=== PATIENT | male | born 1970 | race Caucasian/White ===

== ENCOUNTER 2017-04-15 17:17 | Emergency (ER) | payer SELFPAY ==
[~2017-04-15] VITALS: Ht 167.6 cm; Wt 102.1 kg
[2017-04-15] MEDS ORDERED: LORAZEPAM 1 MG TAB PO ONE (17:45)
--- NOTE | 2017-04-15 18:36 | Diagnostic Imaging Report ---
EXAMINATION: Chest, CHEST SINGLE (NOT PORTABLE) INDICATION: Chest pain COMPARISON: None FINDINGS: LINES: None. Heart: Normal cardiac silhouette. Vascular: The pulmonary vasculature is within normal limits. Mediastinum: No mediastinal, hilar, or axillary mass or lymphadenopathy. Lungs: No parenchymal mass. No focal consolidation. Pleura: No pleural effusion. No pneumothorax. Bones: No acute osseous abnormality. Degenerative changes of the thoracic spine. Soft tissues: Normal. Impression: No acute radiographic abnormality. Signed by: Dr. Derek Coleman M.D. on 04/15/2017 6:30 PM
[2017-04-15 19:03] LABS: BASOPHILS # (AUTO) 0.1 (0.0-0.1); BASOPHILS % 0.7 % (0.0-1.0); EOSINOPHILS # (AUTO) 0.1 (0.0-0.4); EOSINOPHILS % 1.8 % (0.0-6.0); HEMATOCRIT 44.1 % (38.2-49.6); LYMPHOCYTES # (AUTO) 1.5 (1.0-3.2); LYMPHOCYTES % 20.9 % (18.0-39.1); MEAN CORPUSCULAR HEMOGLOBIN 33.3 pg (28-32); MONOCYTES # (AUTO) 0.7 (0.2-0.8); MONOCYTES % 9.5 % (4.4-11.3); NEUTROPHILS # (AUTO) 4.7 (2.1-6.9); NEUTROPHILS % 66.8 % (38.7-80.0); PLATELET COUNT 144 x10e3/uL (140-360); RED CELL DISTRIBUTION WIDTH 12.8 % (11.7-14.4)
[2017-04-15 19:05] LABS: BILIRUBIN,URINE NEGATIVE (NEGATIVE); KETONES,URINE NEGATIVE (NEGATIVE); LEUKOCYTE ESTERASE ,URINE NEGATIVE (NEGATIVE); NITRITE,URINE NEGATIVE (NEGATIVE); PROTEIN,URINE DIPSTICK NEGATIVE (NEGATIVE); URINE UROBILINOGEN 0.2 mg/dL (0.2 - 1)
[2017-04-15 19:06] LABS: CLARITY,URINE CLEAR (CLEAR); COLOR,URINE STRAW (YELLOW)
[2017-04-15 19:20] LABS: ALANINE AMINOTRANSFERASE 149 IU/L (0-55); ALBUMIN/GLOBULIN RATIO 0.9 (0.8-2.0); ALKALINE PHOSPHATASE 137 IU/L (40-150); AMPHETAMINES SCREEN,URINE NEGATIVE (NEGATIVE); ANION GAP 21.7 mmol/L (8-16); BENZODIAZEPINES SCREEN,URINE NEGATIVE (NEGATIVE); BLOOD UREA NITROGEN < 5 mg/dL (7-26); CALCIUM 8.7 mg/dL (8.4-10.2); CARBON DIOXIDE 21 mmol/L (22-29); CHLORIDE 102 mmol/L (98-107); CREATINE KINASE 229 IU/L (30-200); EST GLOMERULAR FILTRATION RATE > 60 ML/MIN (60-); GLUCOSE 224 mg/dL (74-118); PHENCYCLIDINE SCREEN,URINE NEGATIVE (NEGATIVE); SODIUM 142 mmol/L (136-145)
[2017-04-15 19:21] LABS: WBC,URINE (MAN) 0-5 /HPF (0-5)
[2017-04-15 19:22] LABS: EPITHELIAL CELLS,URINE RARE /LPF
[2017-04-15 19:25] LABS: BUN/CREATININE RATIO 6 (6-25); POTASSIUM 2.7 mmol/L (3.5-5.1)
[2017-04-15] MEDS ORDERED: POTASSIUM CHLORIDE 20 MEQ TAB CR PO STA (19:25)
[2017-04-15 19:40] LABS: ACETAMINOPHEN < 3 ug/mL (10-30); SALICYLATE < 5.0 mg/dL (0-30)
[2017-04-15] MEDS ORDERED: MULTIVITAMINS- 12 INJECTION 10 ML, FOLIC ACID MDV 5 MG, THIAMINE HCL INJ 100 MG in SODI... IV ONE (20:45)
[2017-04-15] MEDS ORDERED: LORAZEPAM 1 MG TAB ONE (20:47)
[2017-04-15] MEDS ORDERED: DIPHENHYDRAMINE HCL INJ 50 MG/ML VIAL IV ONE ×2 (21:00→23:00)
[2017-04-15] MEDS ORDERED: LORAZEPAM INJ 2 MG/ML VIAL IV ONE ×2 (21:00→23:00)
[2017-04-16] MEDS ORDERED: POTASSIUM CHLORIDE 20 MEQ TAB CR PO STA (00:21)
[2017-04-16] MEDS ORDERED: CLONIDINE HCL 0.1 MG TAB PO ONE (04:00)
[2017-04-16] MEDS ORDERED: LORAZEPAM INJ 2 MG/ML VIAL IV ONE (04:15)
[2017-04-16 05:11] VITALS: BP 151/106
[2017-05-12] MEDS ORDERED: PANTOPRAZOLE SO40 MG PO (07:25)
[2017-05-12] MEDS ORDERED: TYLENOL WITH C1 EACH PO (07:25)
[2017-05-12] MEDS ORDERED: LEVAQUIN500 MG PO ×2 (07:25→11:57)
[2017-05-12] MEDS ORDERED: ULTRACET TABLE1 EACH PO (07:25)
[2017-05-12] MEDS ORDERED: ZOFRAN ODT4 MG PO (07:25)
[2017-05-12] MEDS ORDERED: FLAGYL500 MG PO (07:25)
[2017-05-12] MEDS ORDERED: SUCRALFATE1 GM PO (07:25)
[2017-05-12] MEDS ORDERED: FLOMAX0.4 MG PO (07:25)
== END 2017-04-16 06:16 | disposition home or self-care (01) ==
LOC: ER 17:17
DX: R45.851 Suicidal ideations (principal); F10.221 Alcohol dependence with intoxication delirium; E87.6 Hypokalemia
CPT/HCPCS: 36415; 71010; 80053; 80307; 80320; 80329 ×2; 81001; 82550; 82553; 84132; 84484; 85025; 87086; 99283; J1200; J2060 ×2; J3411; J7030; 71045

== ENCOUNTER 2017-05-07 23:56 | Inpatient (IN) | payer SELFPAY ==
[~2017-05-07] VITALS: Ht 167.6 cm; Wt 102.1 kg
--- OUTSIDE RECORDS SUMMARY | 2017-05-07 23:59 | XMS REPORT ---
Author [facility] Address Unknown Phone Unavailable Care Team Providers Care Director Fundraising Name Role Phone RNE BARBER Unavailable Unavailable Problems This patient has no known problems. Allergies, Adverse Reactions, Alerts This patient has no known allergies or adverse reactions. Medications This patient has no known medications. 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 Heart: Normal cardiac silhouette. Vascular: The pulmonary vasculature is within normal limits. Mediastinum: No mediastinal, hilar, or axillary mass or lymphadenopathy. Lungs: No parenchymal mass. No focal consolidation. Pleura: No pleural effusion. No pneumothorax. Bones: No acute osseous abnormality. Degenerative changes of the thoracic spine. Soft tissues: Normal. Impression: No acute radiographic abnormality. Signed by: Dr. Jeimy Moreno M.D. on 04/15/2017 6:30 PM Dictated By: JEIMY MORENO MD 29 Transcribed By: EMILY on 04/15/171829 COPY TO: JEANIE DRAKE NP
[2017-05-08] MEDS ORDERED: MORPHINE SULFATE 2 MG/ML SYR IV STA (00:51)
[2017-05-08] MEDS ORDERED: ONDANSETRON HCL INJ 2 MG/ML VIAL IV STA (00:51)
[2017-05-08] MEDS ORDERED: SODIUM CHLORIDE 0.9% 1000ML 1,000 ML IV STA (00:51)
[2017-05-08] MEDS ORDERED: PANTOPRAZOLE 40 MG 10ML VIAL IV STA (00:51)
[2017-05-08] MEDS ORDERED: DIATRIZOATE MEGL/DIATRIZOA SOD 30 ML BTL PO ONE (01:05)
[2017-05-08 01:07] LABS: BASOPHILS % 0.5 % (0.0-1.0); EOSINOPHILS # (AUTO) 0.1 (0.0-0.4); EOSINOPHILS % 1.6 % (0.0-6.0); HEMATOCRIT 41.7 % (38.2-49.6); HEMOGLOBIN 14.1 g/dL (14.0-18.0); MEAN CORPUSCULAR HEMOGLOBIN 33.7 pg (28-32); MEAN CORPUSCULAR HGB CONC 33.8 g/dL (31-35); MEAN CORPUSCULAR VOLUME 99.5 fL (81-99); MONOCYTES # (AUTO) 0.8 (0.2-0.8); MONOCYTES % 11.2 % (4.4-11.3); NEUTROPHILS # (AUTO) 5.3 (2.1-6.9); NEUTROPHILS % 72.4 % (38.7-80.0); PLATELET COUNT 146 x10e3/uL (140-360); RED BLOOD COUNT 4.19 x10e6/uL (4.3-5.7); RED CELL DISTRIBUTION WIDTH 13.5 % (11.7-14.4)
[2017-05-08 01:11] LABS: INR 1.21; PROTHROMBIN TIME 14.4 seconds (11.9-14.5)
[2017-05-08 01:12] LABS: PARTIAL THROMBOPLASTIN TIME 36.8 seconds (23.8-35.5)
[2017-05-08 01:19] LABS: ALANINE AMINOTRANSFERASE 115 IU/L (0-55); ALBUMIN 3.2 g/dL (3.5-5.0); ALBUMIN/GLOBULIN RATIO 0.7 (0.8-2.0); ALKALINE PHOSPHATASE 152 IU/L (40-150); AMYLASE 27 U/L (25-125); BLOOD UREA NITROGEN 12 mg/dL (7-26); BUN/CREATININE RATIO 13 (6-25); CALCIUM 8.8 mg/dL (8.4-10.2); CARBON DIOXIDE 19 mmol/L (22-29); CREATINE KINASE 44 IU/L (30-200); CREATININE, SERUM 0.93 mg/dL (0.72-1.25); EST GLOMERULAR FILTRATION RATE > 60 ML/MIN (60-); GLUCOSE 118 mg/dL (74-118); LIPASE 30 U/L (8-78)
[2017-05-08 01:31] LABS: CHLORIDE 103 mmol/L (98-107); MAGNESIUM 1.9 MG/DL (1.3-2.1); POTASSIUM 3.1 mmol/L (3.5-5.1); SODIUM 136 mmol/L (136-145)
[2017-05-08 01:32] LABS: ANION GAP 17.1 mmol/L (8-16)
[2017-05-08] MEDS ORDERED: IOPAMIDOL 370 MG/ML 200 ML INFUS..BTL INJ ONE (03:21)
[2017-05-08] MEDS ORDERED: SODIUM CHLORIDE 0.9% 50ML 50 ML ONE (03:21)
--- NOTE | 2017-05-08 03:31 | Diagnostic Imaging Report ---
EXAMINATION: CHEST SINGLE (PORTABLE) INDICATION: Abdominal pain COMPARISON: 04/15/2017 FINDINGS: TUBES and LINES: None. LUNGS: Lungs are not well inflated. Lungs are clear. There is no evidence of pneumonia or pulmonary edema. PLEURA: No pleural effusion or pneumothorax. HEART AND MEDIASTINUM: The cardiomediastinal silhouette is unremarkable. BONES AND SOFT TISSUES: No acute osseous lesion. Soft tissues are unremarkable. UPPER ABDOMEN: No free air under the diaphragm. IMPRESSION: No acute thoracic abnormality. Signed by: Dr. Aleks Constantino M.D. on 05/08/2017 3:27 AM
--- NOTE | 2017-05-08 03:35 | Diagnostic Imaging Report ---
EXAM: CT Abdomen and Pelvis WITH contrast INDICATION: Abdominal pain COMPARISON: None. TECHNIQUE: Abdomen and pelvis were scanned utilizing a multidetector helical scanner from the lung base to the pubic symphysis after administration of IV contrast. Coronal and sagittal reformations were obtained. Routine protocol was performed. Scan was performed when during portal venous phase. IV CONTRAST: 100 mL of Isovue-370 ORAL CONTRAST: Gastrografin RADIATION DOSE: Total DLP: 765.43 mGy*cm Estimated effective dose: (DLP x 0.015 x size factor) mSv COMPLICATIONS: None FINDINGS: LINES and TUBES: None. LOWER THORAX: Unremarkable HEPATOBILIARY: The liver is diffuse hypodense compared to the spleen, consistent with diffuse hepatic diffuse hepatic steatosis. No focal hepatic lesions. No biliary ductal dilation. GALLBLADDER: No radio-opaque stones or sludge. No wall thickening. SPLEEN: No splenomegaly. PANCREAS: No focal masses or ductal dilatation. ADRENALS: No adrenal nodules KIDNEYS/URETERS: Kidneys enhance symmetrically. No hydronephrosis. No cystic or solid mass lesions. No stones. GI TRACT: There is a 3.4 cm soft tissue density at the GE junction suspicious for submucosal mass. There is extensive distal small bowel submucosal fat deposition compatible with chronic enteritis and colitis. Large amount of fluid in the right hemicolon suggest acute colitis Diffuse thickening of the sigmoid colon with multiple diverticuli and pericolic fat stranding compatible with acute diverticulitis. Appendix is normal. PELVIC ORGANS/BLADDER: Unremarkable. LYMPH NODES: No lymphadenopathy. VESSELS: Unremarkable. PERITONEUM / RETROPERITONEUM: No free air or fluid. BONES: Unremarkable. SOFT TISSUES: Unremarkable. IMPRESSION: 1. Acute diverticulitis of the distal sigmoid colon with microperforation into the mesosigmoid without abscess formation or free peritoneal air. 2. Evidence of acute on chronic enteritis and colitis also present Signed by: Dr. Aleks Constantino M.D. on 05/08/2017 3:31 AM
[2017-05-08 03:56] LABS: BILIRUBIN,URINE NEGATIVE (NEGATIVE); CLARITY,URINE CLEAR (CLEAR); COLOR,URINE YELLOW (YELLOW); KETONES,URINE NEGATIVE (NEGATIVE); LEUKOCYTE ESTERASE ,URINE NEGATIVE (NEGATIVE); NITRITE,URINE NEGATIVE (NEGATIVE); PROTEIN,URINE DIPSTICK NEGATIVE (NEGATIVE); URINE UROBILINOGEN 0.2 mg/dL (0.2 - 1)
[2017-05-08 04:00] LABS: AMPHETAMINES SCREEN,URINE NEGATIVE (NEGATIVE); BENZODIAZEPINES SCREEN,URINE POSITIVE (NEGATIVE); PHENCYCLIDINE SCREEN,URINE NEGATIVE (NEGATIVE)
[2017-05-08] MEDS ORDERED: MORPHINE SULFATE 2 MG/ML SYR IV PRN (04:00)
[2017-05-08 04:10] LABS: RBC,URINE 0-5 /HPF (0-5); WBC,URINE (MAN) 21-50 /HPF (0-5)
[2017-05-08 04:11] LABS: BACTERIA,URINE FEW /HPF; EPITHELIAL CELLS,URINE RARE /LPF
[2017-05-08] MEDS ORDERED: POTASSIUM CHLORIDE 10MEQ/100ML 100 ML IV SCH (04:15)
[2017-05-08 04:36] VITALS: BP 146/78
[2017-05-08] MEDS: D5.45%NS/KCL 20MEQ 1,000 ML IV SCH ×3 (04:42→20:02)
[2017-05-08] MEDS: METRONIDAZOLE 500MG/NS 100ML 100 ML IV SCH ×4 (04:42→18:08)
[2017-05-08] MEDS: ONDANSETRON HCL INJ 2 MG/ML VIAL IV PRN ×2 (04:43→20:59)
[2017-05-08] MEDS: PIPER-TAZ 3.375 GM 50 ML IV SCH ×4 (06:00→18:08)
[2017-05-08] MEDS: HYDROMORPHONE 2MG/ML INJ IV PRN ×3 (06:31→20:59)
--- NOTE | 2017-05-08 07:43 | History and Physical ---
PRIMARY CARE PHYSICIAN: None. CHIEF COMPLAINT: Abdominal pain. HISTORY OF PRESENT ILLNESS: This is a 46-year-old man with a history of GERD, now developing abdominal pain for the past 3 days, has been using ibuprofen without much relief, therefore he came to the hospital. Here, he was found to have acute diverticulitis with microperforation. He is admitted for further evaluation and management. PAST MEDICAL HISTORY: Hypertension, GERD, insomnia, alcohol abuse. PAST SURGICAL HISTORY: GI. ALLERGIES: PER ELECTRONIC MEDICAL RECORD. FAMILY HISTORY/SOCIAL HISTORY: Patient is , quit alcohol 9 days ago. Previously used to have 1 pint of alcohol every 3 days. No cigarettes, no illicits. MEDICATIONS: Per electronic medical record. REVIEW OF SYSTEMS: Denies any dizziness, chest pain. PHYSICAL EXAMINATION: VITAL SIGNS: Have been reviewed. GENERAL APPEARANCE: Tired-appearing man resting in bed. HEENT: Anicteric. Patient with tears running down his face secondary to discomfort of the abdomen. CARDIOVASCULAR: Normal S1 and S2. LUNGS: He has moderate breath sounds. No wheezing. ABDOMEN: Soft, nondistended. He has tenderness in the mid abdomen bilaterally. There is minimal voluntary guarding. EXTREMITIES: No edema or calf tenderness. NEUROLOGICAL: He is alert and oriented x3. Moves all extremities. SKIN: Dry. PSYCHIATRIC: Flat affect. LABS: Reviewed. MEDICATIONS: Reviewed. ASSESSMENT AND PLAN: This is a 46-year-old man. 1. Acute diverticulitis with microperforation. Will continue intravenous fluids, n.p.o. status. Will continue broad-spectrum antibiotics of Flagyl and Zosyn. Surgery has been consulted. 2. Acute enteritis. Continue antibiotics and fluids. 3. Hyperbilirubinemia. Will reassess in the next day or two. Continue intravenous rehydration in meantime. 4. Urinary tract infection. Continue Zosyn. 5. Obesity. Body mass index is 36.3. Will obtain a hemoglobin A1c and lipid panel. 6. Metabolic acidosis. Rehydrate patient. 7. Hypokalemia. Replace and recheck this morning. 8. Positive opiates and benzodiazepine in the urine. 9. Prophylaxis. Will use sequential compression devices and proton pump inhibitor. 10. Disposition. Obtain labs later today. Monitor closely. Job#: [id number]
[2017-05-08 08:00] LABS: CREATINE KINASE 39 IU/L (30-200)
[2017-05-08 08:24] VITALS: BP 121/57
[2017-05-08 08:29] LABS: CHOL/HDL RATIO 11.4 (3.9-4.7)
[2017-05-08] MEDS: PANTOPRAZOLE 40 MG 10ML VIAL IV SCH ×2 (08:59→18:08)
[2017-05-08] MEDS ORDERED: POTASSIUM CHLORIDE 20MEQ/100ML 100 ML IV ONE (09:00)
[2017-05-08] MEDS: POTASSIUM CHLORIDE 10MEQ/100ML 100 ML IV SCH ×2 (10:01→13:27)
[2017-05-08] MEDS: DICYCLOMINE HCL 20 MG/2 ML VIAL IM SCH ×2 (13:26→18:08)
[2017-05-08 14:14] VITALS: BP 119/57
[2017-05-08 16:11] VITALS: BP 137/77
[2017-05-08 16:52] LABS: ANION GAP 14.3 mmol/L (8-16); BLOOD UREA NITROGEN 8 mg/dL (7-26); BUN/CREATININE RATIO 11 (6-25); CARBON DIOXIDE 17 mmol/L (22-29); CHLORIDE 106 mmol/L (98-107); CREATININE, SERUM 0.73 mg/dL (0.72-1.25); EST GLOMERULAR FILTRATION RATE > 60 ML/MIN (60-); GLUCOSE 103 mg/dL (74-118); MAGNESIUM 1.4 MG/DL (1.3-2.1); PHOSPHORUS 2.7 MG/DL (2.3-4.7); POTASSIUM 3.3 mmol/L (3.5-5.1); SODIUM 134 mmol/L (136-145)
[2017-05-08 17:01] LABS: CREATINE KINASE MB 1.5 ng/mL (0.00-5.00)
[2017-05-08 17:29] VITALS: BP 137/77
[2017-05-08 20:00] VITALS: BP 130/62
[2017-05-08] MEDS: LEVOFLOXACIN 500MG/D5W 100ML 100 ML IV SCH (20:58)
[2017-05-09] VITALS (7 sets, daily range): BP systolic 112–141; BP diastolic 60–85
[2017-05-09] MEDS: HYDROMORPHONE 2MG/ML INJ IV PRN ×5 (01:28→22:04)
[2017-05-09] MEDS: ALPRAZOLAM 0.25 MG TAB PO PRN (01:28)
[2017-05-09] MEDS: D5.45%NS/KCL 20MEQ 1,000 ML IV SCH ×3 (04:02→20:15)
[2017-05-09] MEDS: METRONIDAZOLE 500MG/NS 100ML 100 ML IV SCH ×5 (06:00→23:33)
[2017-05-09] MEDS: DICYCLOMINE HCL 20 MG/2 ML VIAL IM SCH ×4 (06:00→17:11)
[2017-05-09] MEDS: PIPER-TAZ 3.375 GM 50 ML IV SCH ×4 (06:21→17:11)
[2017-05-09 06:54] LABS: BASOPHILS % 0.3 % (0.0-1.0); EOSINOPHILS # (AUTO) 0.2 (0.0-0.4); EOSINOPHILS % 2.5 % (0.0-6.0); HEMOGLOBIN 12.2 g/dL (14.0-18.0); LYMPHOCYTES # (AUTO) 1.4 (1.0-3.2); LYMPHOCYTES % 14.8 % (18.0-39.1); MEAN CORPUSCULAR HEMOGLOBIN 33.7 pg (28-32); MEAN CORPUSCULAR HGB CONC 33.9 g/dL (31-35); MEAN CORPUSCULAR VOLUME 99.4 fL (81-99); MONOCYTES % 10.4 % (4.4-11.3); NEUTROPHILS # (AUTO) 6.7 (2.1-6.9); NEUTROPHILS % 71.4 % (38.7-80.0); PLATELET COUNT 187 x10e3/uL (140-360); RED BLOOD COUNT 3.62 x10e6/uL (4.3-5.7); RED CELL DISTRIBUTION WIDTH 13.4 % (11.7-14.4)
[2017-05-09 07:34] LABS: ALANINE AMINOTRANSFERASE 77 IU/L (0-55); ALBUMIN 2.6 g/dL (3.5-5.0); ALBUMIN/GLOBULIN RATIO 0.6 (0.8-2.0); ALKALINE PHOSPHATASE 111 IU/L (40-150); ANION GAP 13.2 mmol/L (8-16); BLOOD UREA NITROGEN 8 mg/dL (7-26); BUN/CREATININE RATIO 11 (6-25); CALCIUM 7.9 mg/dL (8.4-10.2); CARBON DIOXIDE 20 mmol/L (22-29); CHLORIDE 106 mmol/L (98-107); EST GLOMERULAR FILTRATION RATE > 60 ML/MIN (60-); GLUCOSE 98 mg/dL (74-118); LIPASE 17 U/L (8-78); POTASSIUM 3.2 mmol/L (3.5-5.1); SODIUM 136 mmol/L (136-145)
[2017-05-09] MEDS: PANTOPRAZOLE 40 MG 10ML VIAL IV SCH ×2 (09:29→17:11)
[2017-05-09] MEDS ORDERED: POTASSIUM CHLORIDE 20 MEQ TAB CR PO ONE (12:30)
[2017-05-09] MEDS: LEVOFLOXACIN 500MG/D5W 100ML 100 ML IV SCH (20:15)
[2017-05-09] MEDS: DICYCLOMINE HCL 20 MG/2 ML VIAL IM PRN (23:46)
[2017-05-10] VITALS (7 sets, daily range): BP systolic 116–129; BP diastolic 66–79
[2017-05-10] MEDS: PIPER-TAZ 3.375 GM 50 ML IV SCH ×4 (00:53→18:54)
[2017-05-10] MEDS: HYDROMORPHONE 2MG/ML INJ IV PRN ×5 (03:08→20:25)
[2017-05-10] MEDS: D5.45%NS/KCL 20MEQ 1,000 ML IV SCH ×3 (04:02→20:02)
[2017-05-10] MEDS: METRONIDAZOLE 500MG/NS 100ML 100 ML IV SCH ×4 (05:30→23:55)
[2017-05-10] MEDS: PANTOPRAZOLE 40 MG 10ML VIAL IV SCH ×2 (08:38→17:52)
[2017-05-10] MEDS: DICYCLOMINE HCL 20 MG/2 ML VIAL IM PRN ×2 (08:47→15:56)
[2017-05-10 10:33] LABS: BASOPHILS % 0.5 % (0.0-1.0); EOSINOPHILS # (AUTO) 0.3 (0.0-0.4); EOSINOPHILS % 4.1 % (0.0-6.0); HEMATOCRIT 38.9 % (38.2-49.6); LYMPHOCYTES # (AUTO) 1.1 (1.0-3.2); LYMPHOCYTES % 16.5 % (18.0-39.1); MEAN CORPUSCULAR HEMOGLOBIN 33.9 pg (28-32); MEAN CORPUSCULAR HGB CONC 33.4 g/dL (31-35); MEAN CORPUSCULAR VOLUME 101.3 fL (81-99); MONOCYTES # (AUTO) 0.6 (0.2-0.8); MONOCYTES % 9.1 % (4.4-11.3); NEUTROPHILS # (AUTO) 4.6 (2.1-6.9); NEUTROPHILS % 69.2 % (38.7-80.0); PLATELET COUNT 207 x10e3/uL (140-360); RED BLOOD COUNT 3.84 x10e6/uL (4.3-5.7); RED CELL DISTRIBUTION WIDTH 13.2 % (11.7-14.4)
--- NOTE | 2017-05-10 10:44 | Progress Note ---
DATE: May 09, 2017 TIME: 9 a.m. OVERNIGHT: No events. REVIEW OF SYSTEMS: Denies any chest pain. VITAL SIGNS: Reviewed. PHYSICAL EXAMINATION GENERAL APPEARANCE: Tired-appearing man resting in bed. HEENT: Anicteric. CARDIOVASCULAR: Normal S1 and S2. LUNGS: Moderate breath sounds. ABDOMEN: Soft. Tender. No rebound. EXTREMITIES: No edema. SKIN: Dry. PSYCHIATRIC: Flat affect. LABS: Reviewed. MEDICATIONS: Reviewed. ASSESSMENT AND PLAN: A 46-year-old man. 1. Acute diverticulitis with microperforation. 2. Acute enteritis. 3. Hyperbilirubinemia. 4. Urinary tract infection. 5. Obesity. 6. Metabolic acidosis. 7. Hypokalemia. PLAN 1. Continue supportive care. 2. Continue IV fluids. 3. Continue IV antibiotics. 4. Monitor closely. 5. Reassess tomorrow. Job#: [id number]
--- NOTE | 2017-05-10 10:49 | Progress Note ---
DATE: May 10, 2017 TIME: 10:15 a.m. OVERNIGHT: Complains of worsening abdominal pain. REVIEW OF SYSTEMS: Denies any dizziness. VITAL SIGNS: Reviewed. PHYSICAL EXAMINATION GENERAL APPEARANCE: Tired-appearing man resting in bed. HEENT: Anicteric. CARDIOVASCULAR: Normal S1 and S2. LUNGS: Moderate breath sounds. ABDOMEN: Soft. Tender in the mid abdomen. EXTREMITIES: No edema. SKIN: Dry. PSYCHIATRIC: Flat affect. LABS: Reviewed. MEDICATIONS: Reviewed. ASSESSMENT AND PLAN: A 46-year-old man. 1. Acute diverticulitis with microperforation. 2. Acute enteritis. 3. Hyperbilirubinemia. 4. Urinary tract infection. 5. Obesity. 6. Metabolic acidosis. 7. Hypokalemia. PLAN 1. Continue IV antibiotics broad spectrum. 2. Consult GI service for possible endoscopy. 3. Obtain reimaging of the abdomen with CT scan due to worsening symptoms. 4. Obtain labs this morning. 5. Replace electrolytes once obtained. 6. Pain control, GI consultation, CT scan of the abdomen. Job#: [id number]
[2017-05-10 11:05] LABS: ANION GAP 13.3 mmol/L (8-16); BLOOD UREA NITROGEN < 5 mg/dL (7-26); CALCIUM 7.8 mg/dL (8.4-10.2); CARBON DIOXIDE 24 mmol/L (22-29); CHLORIDE 101 mmol/L (98-107); CREATININE, SERUM 0.73 mg/dL (0.72-1.25); EST GLOMERULAR FILTRATION RATE > 60 ML/MIN (60-); GLUCOSE 99 mg/dL (74-118); POTASSIUM 3.3 mmol/L (3.5-5.1); SODIUM 135 mmol/L (136-145)
[2017-05-10 11:12] LABS: BUN/CREATININE RATIO 7 (6-25)
[2017-05-10] MEDS ORDERED: DIATRIZOATE MEGL/DIATRIZOA SOD 30 ML BTL PO ONE (12:09)
--- NOTE | 2017-05-10 13:53 | Diagnostic Imaging Report ---
PROCEDURE: CT ABDOMEN AND PELVIS WITH CONTRAST TECHNIQUE: The abdomen and pelvis were scanned utilizing a multidetector helical scanner from the diaphragm to the lesser trochanter after the IV administration of 100 cc of Isovue 370 and the oral administration of Gastroview. Coronal and sagittal multiplanar reformations were obtained. COMPARISON: Abdominal CT 05/08/2017 INDICATIONS: LOWER ABDOMEN PAIN FINDINGS: LOWER THORAX: Normal. HEPATOBILIARY: No focal hepatic lesions. Diffuse hypoattenuation of the liver is suggestive of hepatic steatosis. No biliary ductal dilatation. SPLEEN: No splenomegaly. PANCREAS: No focal masses or ductal dilatation. ADRENALS: No adrenal nodules. KIDNEYS/URETERS: No hydronephrosis, stones, or solid mass lesions. PELVIC ORGANS/BLADDER: Urinary bladder is collapsed, limiting evaluation. PERITONEUM / RETROPERITONEUM: No free intraperitoneal air. LYMPH NODES: No lymphadenopathy. VESSELS: Unremarkable. GI TRACT: Redemonstration of sigmoid colonic diverticulitis with a few foci of air in the adjacent sigmoid mesentery. Increasing organization of a 2 x 2.6 x 2 cm fluid collection punctate focus of air (series 2 image 79) concerning for developing abscess which is too small to drain at this time. No miguel perforation. No evidence of bowel obstruction. Scattered areas of submucosal fat within multiple small and large bowel loops he related to prior inflammation or can be seen with large body habitus. Soft tissue prominence at the gastroesophageal junction suggestive of prior fundoplication. BONES AND SOFT TISSUES: Unremarkable. IMPRESSION: Redemonstration of sigmoid colonic diverticulitis with microperforation. An adjacent small fluid collection is concerning for a forming abscess which is too small to drain at this time. Dictated by: Don Glass M.D. on 05/10/2017 at 13:53 Electronically approved by: Don Glass M.D. on 05/10/2017 at 13:53
[2017-05-10] MEDS ORDERED: POTASSIUM CHLORIDE 20 MEQ TAB CR PO ONE (14:00)
[2017-05-10] MEDS ORDERED: IOPAMIDOL 370 MG/ML 200 ML INFUS..BTL INJ ONE (14:34)
[2017-05-10] MEDS ORDERED: SODIUM CHLORIDE 0.9% 50ML 50 ML ONE (14:34)
[2017-05-10] MEDS ORDERED: ACETAMINOPHEN 325 MG TAB PO PRN (16:15)
[2017-05-10] MEDS: ALPRAZOLAM 0.25 MG TAB PO PRN (20:25)
[2017-05-10] MEDS: LEVOFLOXACIN 500MG/D5W 100ML 100 ML IV SCH (20:25)
[2017-05-11] VITALS (8 sets, daily range): BP systolic 111–137; BP diastolic 63–83
[2017-05-11] MEDS: HYDROMORPHONE 2MG/ML INJ IV PRN
[2017-05-11] MEDS: DICYCLOMINE HCL 20 MG/2 ML VIAL IM PRN ×2 (00:10→18:31)
[2017-05-11] MEDS: PIPER-TAZ 3.375 GM 50 ML IV SCH (00:45)
[2017-05-11] MEDS: D5.45%NS/KCL 20MEQ 1,000 ML IV SCH ×3 (04:02→23:35)
[2017-05-11] MEDS: TRAMADOL HCL 50 MG TAB PO PRN ×2 (04:22→18:15)
[2017-05-11] MEDS: ALPRAZOLAM 0.25 MG TAB PO PRN (04:22)
[2017-05-11] MEDS: LEVOFLOXACIN 750MG/D5W 150ML 150 ML IV SCH (05:55)
[2017-05-11] MEDS: METRONIDAZOLE 500MG/NS 100ML 100 ML IV SCH ×4 (05:55→23:36)
[2017-05-11 07:02] LABS: BASOPHILS % 0.3 % (0.0-1.0); EOSINOPHILS # (AUTO) 0.2 (0.0-0.4); EOSINOPHILS % 3.9 % (0.0-6.0); HEMATOCRIT 37.4 % (38.2-49.6); HEMOGLOBIN 12.5 g/dL (14.0-18.0); LYMPHOCYTES # (AUTO) 0.9 (1.0-3.2); MEAN CORPUSCULAR HEMOGLOBIN 33.7 pg (28-32); MEAN CORPUSCULAR HGB CONC 33.4 g/dL (31-35); MEAN CORPUSCULAR VOLUME 100.8 fL (81-99); MONOCYTES # (AUTO) 0.7 (0.2-0.8); MONOCYTES % 10.7 % (4.4-11.3); NEUTROPHILS # (AUTO) 4.3 (2.1-6.9); NEUTROPHILS % 70.1 % (38.7-80.0); PLATELET COUNT 224 x10e3/uL (140-360); RED BLOOD COUNT 3.71 x10e6/uL (4.3-5.7)
[2017-05-11 07:31] LABS: ALANINE AMINOTRANSFERASE 137 IU/L (0-55); ALBUMIN 2.5 g/dL (3.5-5.0); ALBUMIN/GLOBULIN RATIO 0.6 (0.8-2.0); ALKALINE PHOSPHATASE 120 IU/L (40-150); ANION GAP 12.5 mmol/L (8-16); BLOOD UREA NITROGEN < 5 mg/dL (7-26); BUN/CREATININE RATIO 7 (6-25); CALCIUM 7.9 mg/dL (8.4-10.2); CARBON DIOXIDE 24 mmol/L (22-29); CHLORIDE 102 mmol/L (98-107); CREATININE, SERUM 0.68 mg/dL (0.72-1.25); EST GLOMERULAR FILTRATION RATE > 60 ML/MIN (60-); GLUCOSE 101 mg/dL (74-118); POTASSIUM 3.5 mmol/L (3.5-5.1); SODIUM 135 mmol/L (136-145)
--- NOTE | 2017-05-11 08:03 | Progress Note ---
DATE: May 11, 2017 TIME: 7:31 a.m. OVERNIGHT: Continues to have some discomfort in the pelvic, suprapubic region and abdominal pain. He also admits to some difficulty with urination. REVIEW OF SYSTEMS: Denies any dizziness. VITAL SIGNS: Reviewed. PHYSICAL EXAMINATION GENERAL APPEARANCE: Tired-appearing man resting in bed. HEENT: Anicteric. CARDIOVASCULAR: Normal S1 and S2. LUNGS: Moderate breath sounds. ABDOMEN: Soft, somewhat large abdomen, tender in the lower quadrants and suprapubic region distended. EXTREMITIES: No edema or calf tenderness. NEUROLOGICAL: Alert and oriented times 3. Moves all extremities. SKIN: Dry. PSYCHIATRIC: Flat affect. LABS: Reviewed. MEDICATIONS: Reviewed. ASSESSMENT: A 46-year-old man 1. Acute diverticulitis with microperforation. 2. Acute enteritis. 3. Hyperbilirubinemia. 4. Urinary tract infection. 5. Obesity. 6. Metabolic acidosis. 7. Hypokalemia. 8. Dysuria. PLAN 1. We will start Flomax. 2. We will continue broad-spectrum antibiotics, Levaquin, Flagyl and Zosyn. 3. Pain control with tramadol and Tylenol. 4. Anxiety treatment with alprazolam. 5. Diet per GI services. 6. No leukocytosis at this time. No fevers. 7. Check potassium and replace as appropriate. 8. All cultures remain negative. 9. Consideration for urology consultation, but first we will start Flomax. 10. We will also monitor strict I's and O's. 11. Patient is improving. Job#: [id number]
--- NOTE | 2017-05-11 08:43 | Progress Note ---
DATE: NO DICTATION, LENGTH 0:2 Job#: [id number] RI
[2017-05-11] MEDS: PANTOPRAZOLE 40 MG 10ML VIAL IV SCH ×2 (09:34→17:32)
[2017-05-11] MEDS: PIPERACILLIN/TAZO 4.5 GM 50 ML IV SCH ×3 (09:34→21:15)
[2017-05-11] MEDS: TAMSULOSIN HCL 0.4 MG CAP PO SCH ×2 (09:39→21:15)
[2017-05-11] MEDS ORDERED: ALPRAZOLAM 0.5 MG TAB PO PRN (11:00)
--- NOTE | 2017-05-11 18:00 | Diagnostic Imaging Report ---
PROCEDURE:TESTICULAR ULTRASOUND COMPARISON:None. INDICATIONS:TESTICULAR PAIN TECHNIQUE: Arndt-scale and color doppler images of the testicles and scrotal contents were obtained. Duplex imaging with spectral waveform analysis was performed of the testicular arteries and veins. FINDINGS: RIGHT SCROTUM: Testicle: 4.5 x 2.5 x 3.4 cm. No focal lesions. No calcifications. Normal vascularity. Epididymal head: 0.7 x 1.1 x 0.8 cm. Normal echogenicity. Normal vascular D. 0.4 x 0.5 x 0.3 cm cystic, anechoic lesion in the right epididymal head. Hydrocele: None Varicocele: A right varicocele is identified, corresponding to the referring area of tenderness LEFT SCROTUM: Testicle: 5.0 x 2.2 x 3.3 cm. Normal echogenicity. Normal vascularity. No focal lesions. Epididymal head: 0.8 x 1.1 x 1.5 cm. Normal echogenicity. Normal vascularity. 0.4 x 0.3 x 0.4 cm cystic, anechoic lesion in the left epididymal head. Hydrocele: None. Varicocele: None. Normal bilateral arterial and venous flow documented on color Doppler Overlying scrotal skin is unremarkable. No evidence of inguinal hernia. CONCLUSION: 1. Right varicocele, corresponding to the referring area of tenderness/pain. 2. Bilateral epididymal heads in both cysts versus spermatoceles. Rosendo Delacruz M.D. Dictated by: Rosendo Delacruz M.D. on 05/11/2017 at 18:00 Electronically approved by: Rosendo Delacruz M.D. on 05/11/2017 at 18:00
--- NOTE | 2017-05-11 18:01 | Diagnostic Imaging Report ---
PROCEDURE:TESTICULAR DOPPLER ULTRASOUND COMPARISON:None. INDICATIONS:TESTICULAR PAIN CONCLUSION: Please see previously dictated report under testicular ultrasound performed same date Rosendo Delacruz M.D. Dictated by: Rosendo Delacruz M.D. on 05/11/2017 at 18:01 Electronically approved by: Rosendo Delacruz M.D. on 05/11/2017 at 18:01
[2017-05-11] MEDS ORDERED: ZOLPIDEM TARTRATE 5 MG TAB PO PRN (23:30)
[2017-05-12 00:41] VITALS: BP_SYST 123; BP_SYST 172; BP_DIAS 70; BP_DIAS 74
[2017-05-12] MEDS: PIPERACILLIN/TAZO 4.5 GM 50 ML IV SCH ×2 (01:45→08:45)
[2017-05-12] MEDS: DICYCLOMINE HCL 20 MG/2 ML VIAL IM PRN (01:45)
[2017-05-12 04:00] VITALS: BP 124/69
[2017-05-12] MEDS: D5.45%NS/KCL 20MEQ 1,000 ML IV SCH ×2 (04:02→12:02)
[2017-05-12] MEDS: LEVOFLOXACIN 750MG/D5W 150ML 150 ML IV SCH (05:00)
[2017-05-12] MEDS: METRONIDAZOLE 500MG/NS 100ML 100 ML IV SCH ×2 (06:23→12:31)
[2017-05-12] MEDS ORDERED: LEVAQUIN500 MG PO ×2 (07:25→11:57)
[2017-05-12] MEDS ORDERED: FLAGYL500 MG PO (07:25)
[2017-05-12] MEDS ORDERED: SUCRALFATE1 GM PO (07:25)
[2017-05-12] MEDS ORDERED: ZOFRAN ODT4 MG PO (07:25)
[2017-05-12] MEDS ORDERED: PANTOPRAZOLE SO40 MG PO (07:25)
[2017-05-12] MEDS ORDERED: TYLENOL WITH C1 EACH PO (07:25)
[2017-05-12] MEDS ORDERED: ULTRACET TABLE1 EACH PO (07:25)
[2017-05-12] MEDS ORDERED: FLOMAX0.4 MG PO (07:25)
[2017-05-12 07:59] VITALS: BP 125/74
[2017-05-12] MEDS: TAMSULOSIN HCL 0.4 MG CAP PO SCH (08:45)
[2017-05-12] MEDS: PANTOPRAZOLE 40 MG 10ML VIAL IV SCH (08:45)
[2017-05-12 09:05] VITALS: BP 125/74
--- NOTE | 2017-05-12 10:39 | Discharge Summary ---
PRINCIPAL DIAGNOSES 1. Acute diverticulitis with microperforation. 2. Acute enteritis. 3. Hyperbilirubinemia. 4. Urinary tract infection. 5. Obesity. 6. Metabolic acidosis. 7. Hypokalemia. 8. Dysuria. SECONDARY DIAGNOSIS: Hypertension. CHIEF COMPLAINT: Abdominal pain. HISTORY OF PRESENT ILLNESS: This is a 46-year-old male with abdominal pain. Please refer to the H and P for further details. HOSPITAL COURSE: Patient found to have acute diverticulitis with microperforation. Imaging did not show any worsening. There was no abscess. He was treated with IV antibiotics and pain medications. GI service and surgical team evaluated the patient. He also had urinary tract infection and treated with antibiotics. He is on a full liquid diet and will be advanced to a soft diet. The patient will need to follow up with GI service within 6 to 8 weeks for a colonoscopy. I have given him pain medications. I have also provided Flomax to assist in urination. He is doing better and currently appropriate for discharge once cleared by GI services. DISCHARGE MEDICATIONS: Per electronic medical record and include pain medications and antibiotics. FOLLOWUP: Follow up with me in 3 days and follow up with GI services in 2 weeks. CONDITION ON DISCHARGE: Stable and improving. DISCHARGE LOCATION: Home. MARTINA MUNSON MD Job#: [id number] SAK
[2017-05-12] MEDS ORDERED: METRONIDAZOLE500 MG PO (11:58)
[2017-05-12] MEDS: TRAMADOL HCL 50 MG TAB PO PRN (12:31)
--- NOTE | 2017-05-16 16:04 | Consultation ---
DATE OF CONSULTATION: May 11, 2017 REQUESTING PHYSICIAN: Dr. Derek Jennings. CHIEF UROLOGICAL COMPLAINT/REASON FOR CONSULTATION: Testes pain. HISTORY OF PRESENT ILLNESS: Mr. Ramos is a 46-year-old alcoholic hepatitis patient with chronic abdominal pain admitted with diverticulitis, who has had chronic testicular pain on both sides for several months. Denied dysuria. Denied gross hematuria. PAST MEDICAL HISTORY: As above. MEDICATIONS: Please see MAR. ALLERGIES: NKDA SOCIAL HISTORY: Denies smoking, no drinking. FAMILY HISTORY: No urologic stones or malignances. REVIEW OF SYSTEMS: Noncontributory other than problems mentioned above for 12 organ systems. PHYSICAL EXAMINATION GENERAL: A middle-aged male, disheveled, in no acute distress, currently is afebrile. VITALS: Stable vital signs. HEENT: Sclerae are icteric. NECK: Supple. BACK: Without costovertebral angle tenderness bilaterally. ABDOMEN: Soft, nontender, and nondistended. There is no palpable masses. No palpable hernias. No palpable inguinal lymphadenopathy. : Normal male external genitalia. EXTREMITIES: No edema. NEURO: Moves all 4 extremities. PSYCH: Alert. Mood appropriate. SKIN: Intact. Normal color. PERTINENT LABORATORY DATA: CT scan revealing diverticulitis. Hemoglobin 12, hematocrit 37, platelet count 224,000, and white cell 6000. Sodium 134, potassium 3.3, chloride 106, bicarb 17, BUN 8, creatinine 0.73, glucose 120, and calcium 8.0. Urinalysis 21 to 50 whites, 0 to 5 reds, and multiple squames. IMPRESSION: 1. Testicle pain. 2. Questionable urinary tract infection. 3. Diverticulitis. 4. Hypokalemia. 5. Hypocalcemia. PLAN: With chronic testicular pain, we recommend a scrotal ultrasound. Should this be normal, patient may be safe for discharge with outpatient followup, but for the likely urinary tract infection, we will place this patient on culture-specific antibiotics for at least 3 weeks and have the patient to follow up as an outpatient. Thank you for allowing us to participate in this consult. Please have the patient follow up electively as an outpatient. Job#: [id number] VAS cc: Derek Jennings MD [facility]
== END 2017-05-12 13:00 | disposition home or self-care (01) | DRG 392 ==
LOC: ER 23:56 → MED/SURG 05-08 04:27
PROVIDERS: ADMIT Internal Medicine; ATTEND Internal Medicine
DX: K57.20 Diverticulitis of large intestine with perforation and abscess without bleeding (principal); E87.2 Acidosis; K70.10 Alcoholic hepatitis without ascites; N39.0 Urinary tract infection, site not specified; E83.51 Hypocalcemia; E80.6 Other disorders of bilirubin metabolism; E87.6 Hypokalemia; F10.10 Alcohol abuse, uncomplicated; I10 Essential (primary) hypertension; K21.9 Gastro-esophageal reflux disease without esophagitis; K52.9 Noninfective gastroenteritis and colitis, unspecified; F41.9 Anxiety disorder, unspecified; R30.0 Dysuria; I86.1 Scrotal varices
CPT/HCPCS: 36415; 71045; 74177; 76870; 80048; 80053; 80061; 80307; 80320; 81001; 82150; 82550; 82553; 83036; 83690; 83735; 84100; 84132; 84484; 85025; 85610; 85730; 87086; 93005; 93976; 96372; 96376; 99284; J0500; J1956; J2270; J2405; J2543; J3480; Q9967

== ENCOUNTER 2017-07-21 18:35 | Emergency (ER) | payer SELFPAY ==
[~2017-07-21] VITALS: Ht 167.6 cm; Wt 102.1 kg
[~2017-07-21 18:35] MED LIST: FLAGYL500 MG PO; FLOMAX0.4 MG PO; LEVAQUIN500 MG PO; METRONIDAZOLE500 MG PO; PANTOPRAZOLE SO40 MG PO; SUCRALFATE1 GM PO; TYLENOL WITH C1 EACH PO; ULTRACET TABLE1 EACH PO; ZOFRAN ODT4 MG PO
--- OUTSIDE RECORDS SUMMARY | 2017-07-21 18:37 | XMS REPORT | Continuity of Care Document ---
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 No 05/08/17 4:45am If yes, is advance directive on file with [facility]? No 05/08/17 4:45am If not on file with [facility] will patient provide a copy? Yes 05/08/17 4:45am Do you have a Directive to Physician? No 05/08/17 12:43am Do you have a Medical Power of Sales And Production Manager? No 05/08/17 12:43am Do you have an out of hospital Do Not Resuscitate Order? No 05/08/17 12:43am Do you have any special needs we should be aware of? No 05/08/17 12:43am Do you have a support person here with you today? Yes 05/08/17 12:43am Did patient receive Notice of Privacy Practices? Yes 05/08/17 12:43am Did patient receive patient rights and responsibilities? Yes 05/08/17 12:43am Problems Medical Problem Onset Date Status Alcoholic hepatitis Unknown Colitis Unknown Diverticulitis of colon with perforation Unknown Medications Current Home Medications Medication Dose Units Route Directions Days Qty Instructions Start Date Acetaminophen With Codeine (Tylenol With Codeine #3 Tablet) 1 Each Tablet 300 Mg Oral Every 8 Hours as needed for Pain 30 Tab 05/12/17 Levofloxacin (Levaquin) 500 Mg Tablet 500 Mg Oral Daily 14 Days Metronidazole 500 Mg Tablet 500 Mg Oral Every 6 Hours 14 Days Ondansetron (Zofran Odt) 4 Mg Tab.rapdis 4 Mg Oral Q4-6H Prn 30 Pantoprazole Sodium (Protonix) 40 Mg Tablet.dr 40 Mg Oral Every 12 Hours 30 Days 05/12/17 Sucralfate 1 Gm Tablet 1 Gm Oral Twice A Day 30 Days 05/12/17 Tamsulosin Hcl (Flomax*) 0.4 Mg Cap 0.4 Mg Oral Every 12 Hours 30 Days 05/12/17 Tramadol Hcl/Acetaminophen (Ultracet Tablet) 1 Each Tablet 1 Tab Oral Every 8 Hours as needed for Pain 30 Days 05/12/17 Family History Relationship Condition Age at Onset Recorded Date/Time 33 Father FH: cancer Not Recorded 05/08/2017 5:10am 33 Father FH: melanoma Not Recorded 05/08/2017 5:11am Social History Social History Problem Response Recorded Date/Time Onset Date Status Hx Psychiatric Problems No 05/08/2017 4:45am Not Applicable Not Applicable Hx Eating Disorder No 05/08/2017 4:45am Not Applicable Not Applicable Hx Substance Use Disorder No 05/08/2017 4:45am Not Applicable Not Applicable Hx Depression Yes 05/08/2017 4:45am Not Applicable Not Applicable Hx Alcohol Use Y - [place] EVERY 3 DAYS 05/08/2017 4:45am Not Applicable Not Applicable Hx Substance Use Treatment No 05/08/2017 4:45am Not Applicable Not Applicable Hx Physical Abuse No 05/08/2017 4:45am Not Applicable Not Applicable Smoking Status Start Date Stop Date Never Smoker Hospital Discharge Instructions No hospital discharge instruction information available. Plan of Care Discharge Date 05/12/17 1:00pm Disposition HOME, SELF-CARE Instructions/Education Provided Diverticulitis Prescriptions See Medication Section Referrals MARTINA MUNSON MD (Internal Medicine) Order Date: 3 Days Entered Date: 05/12/2017 7:26am Address: [address] [place] [id number] LOUISE ESTEBAN MD (Gastroenterology) Order Date: 1-2 Weeks Entered Date: 05/12/2017 7:26am Address: [address] [place], [place] [address], [place] [id number] Additional Instructions/Education Small, soft diet for thE REST OF THIS WEEK, THEN next week you may return to regular diet PER DOBBS Be sure to go to your appointments You will need a colonoscopy in 6 to [address] LOUISE ESTEBAN CALL DR LOUISE ESTEBAN'S OFFICE TODAY OR ON MONDAY AND MAKE APPOINTMENT DO NOT TAKE BOTH PAIN MEDICATIONS AT THE SAME TIME ANDRES ALEJANDRO Functional Status Query Response Date Recorded Assistive Devices None May 08, 2017 5:02am Ambulation Ability Independent May 08, 2017 5:02am Toileting Ability Maximum Assistance May 11, 2017 10:54am Allergies, Adverse Reactions, Alerts Allergen Type Severity Reaction Status Last Updated No Known Drug Allergies Allergy Unknown Active 05/08/17 chicken derived Allergy Severe THROAT CLOSES Active 05/08/17 CHICKEN Adverse Reaction Severe THROAT CLOSES Active 04/15/17 Immunizations No immunization information available. Vital Signs Acute Vital Signs Vital Response Date/Time Temperature (Fahrenheit) 98.5 degrees F (97.6 - 99.5) 05/12/2017 9:05am Pulse Pulse Rate (adult) 88 bpm (60 - 90) 05/12/2017 9:05am Respiratory Rate 20 bpm (12 - 24) 05/12/2017 9:05am Blood Pressure 125/74 mm Hg 05/12/2017 9:05am Height 5 ft 6 in 05/07/2017 11:58pm Weight 225 lb 05/07/2017 11:58pm Body Mass Index 36.3 kg/m^2 05/08/2017 4:45am Results Laboratory Results Test Name Result Units Flags Reference Collection Date/Time Result Date/ Time Comments Acetaminophen Level < 3 ug/mL L 10-30 04/15/2017 6:25pm 04/15/2017 7: 41pm Salicylates Level < 5.0 mg/dL 0-30 04/15/2017 6:25pm 04/15/2017 7:41pm White Blood Count 6.15 x10e3/uL 4.8-10.8 05/11/2017 6:25am 05/11/2017 7 :07am Red Blood Count 3.71 x10e6/uL L 4.3-5.7 05/11/2017 6:05/11/2017 7: 07am Hemoglobin 12.5 g/dL L 14.0-18.0 05/11/2017 6:05/11/2017 7:07am Hematocrit 37.4 % L 38.2-49.6 05/11/2017 6:05/11/2017 7:07am Mean Corpuscular Volume 100.8 fL H 81-99 05/11/2017 6:05/11/2017 7: 07am Mean Corpuscular Hemoglobin 33.7 pg H 28-32 05/11/2017 6:2017 7:07am Mean Corpuscular Hemoglobin Concent 33.4 g/dL 31-35 05/11/2017 6:05/11/2017 7:07am Red Cell Distribution Width 13.0 % 11.7-14.4 05/11/2017 6:2017 7:07am Platelet Count 224 x10e3/uL 140-360 05/11/2017 6:05/11/2017 7: 07am Neutrophils (%) (Auto) 70.1 % 38.7-80.0 05/11/2017 6:05/11/2017 7: 07am Lymphocytes (%) (Auto) 14.0 % L 18.0-39.1 05/11/2017 6:05/11/2017 7 :07am Monocytes (%) (Auto) 10.7 % 4.4-11.3 05/11/2017 6:05/11/2017 7: 07am Eosinophils (%) (Auto) 3.9 % 0.0-6.0 05/11/2017 6:05/11/2017 7: 07am Basophils (%) (Auto) 0.3 % 0.0-1.0 05/11/2017 6:05/11/2017 7:07am IM GRANULOCYTES % 1.0 % 0.0-1.0 05/11/2017 6:05/11/2017 7:07am Neutrophils # (Auto) 4.3 2.1-6.9 05/11/2017 6:05/11/2017 7:07am Lymphocytes # (Auto) 0.9 L 1.0-3.2 05/11/2017 6:25am 05/11/2017 7: 07am Monocytes # (Auto) 0.7 0.2-0.8 05/11/2017 6:25am 05/11/2017 7:07am Eosinophils # (Auto) 0.2 0.0-0.4 05/11/2017 6:25am 05/11/2017 7:07am Basophils # (Auto) 0.0 0.0-0.1 05/11/2017 6:25am 05/11/2017 7:07am Absolute Immature Granulocyte (auto 0.06 x10e3/uL 0-0.1 05/11/2017 6: 25am 05/11/2017 7:07am Prothrombin Time 14.4 seconds 11.9-14.5 05/08/2017 12:20am 05/08/2017 1 :11am Prothromb Time International Ratio 1.21 05/08/2017 12:20am 2017 1:11am Oral Anticoagulant Therapy INR Values: 1. Low Intensity Therapy 1.5 - 2.0 2. Moderate Intensity Therapy 2.0 - 3.0 3. High Intensity Therapy(1) 2.5 - 3.5 4. High Intensity Therapy(2) 3.0 - 4.0 5. Panic Value INR > 5.0 Activated Partial Thromboplast Time 36.8 seconds H 23.8-35.5 05/08/2017 12:20am 05/08/2017 1:14am Urine Color YELLOW YELLOW 05/08/2017 3:40am 05/08/2017 3:58am Urine Clarity CLEAR CLEAR 05/08/2017 3:40am 05/08/2017 3:58am Urine Specific [place] 1.010 1.010-1.025 05/08/2017 3:40am 2017 3:58am Urine pH 6.5 5 - 7 05/08/2017 3:40am 05/08/2017 3:58am Urine Leukocyte Esterase NEGATIVE NEGATIVE 05/08/2017 3:40am 2017 3:58am Urine Nitrite NEGATIVE NEGATIVE 05/08/2017 3:40am 05/08/2017 3:58am Urine Protein NEGATIVE NEGATIVE 05/08/2017 3:40am 05/08/2017 3:58am Urine Glucose (UA) NEGATIVE NEGATIVE 05/08/2017 3:40am 05/08/2017 3: 58am Urine Ketones NEGATIVE NEGATIVE 05/08/2017 3:40am 05/08/2017 3:58am Urine Opiates Screen POSITIVE H NEGATIVE 05/08/2017 3:40am 05/08/2017 4:02am This test provides only a screen. Positive results should be repeated by a confirmatory test.ALL TESTS PERFORMED MANUALLY ON SIGNIFY ER TEST Urine Barbiturates Screen NEGATIVE NEGATIVE 05/08/2017 3:40am 2017 4:02am Urine Phencyclidine Screen NEGATIVE NEGATIVE 05/08/2017 3:40am 2017 4:02am Urine Amphetamines Screen NEGATIVE NEGATIVE 05/08/2017 3:40am 2017 4:02am Urine Methamphetamines Screen NEGATIVE NEGATIVE 05/08/2017 3:40am 02/2018 4:02am Urine Benzodiazepines Screen POSITIVE H NEGATIVE 05/08/2017 3:40am 02/2018 4:02am This test provides only a screen. Positive results should be repeated by a confirmatory test. Urine Cocaine Screen NEGATIVE NEGATIVE 05/08/2017 3:40am 05/08/2017 4 :02am Urine Cannabinoids Screen NEGATIVE NEGATIVE 05/08/2017 3:40am 2017 4:02am THESE RESULTS ARE FOR MEDICAL TREATMENT ONLY *THIS REPORT CONTAINS UNCONFIRMED SCREENING RESULTS* POSITIVE RESULTS WILL BE CONFIRMED BY REFERENCE LAB UPON REQUEST CUT-OFF DRUG CLASS CONCENTRATION ng/mL Amphetamines 1000 Methamphetamines 1000 Cocaine 300 Opiate 300 Phencyclidine 25 Cannabinoid 50 Barbiturates 300 Benzodiazepine 300 Methadone 300 Urine Methadone Screen NEGATIVE NEGATIVE 05/08/2017 3:40am 2017 4:02am THESE RESULTS ARE FOR MEDICAL TREATMENT ONLY *THIS REPORT CONTAINS UNCONFIRMED SCREENING RESULTS* POSITIVE RESULTS WILL BE CONFIRMED BY REFERENCE LAB UPON REQUEST CUT-OFF DRUG CLASS CONCENTRATION ng/mL Amphetamines 1000 Methamphetamines 1000 Cocaine Metabolite 300 Opiate 300 Phencyclidine 25 Cannabinoid 50 Barbiturates 300 Benzodiazepine 300 Methadone 300 Urine Urobilinogen 0.2 mg/dL 0.2 - 1 05/08/2017 3:40am 05/08/2017 3: 58am Urine Bilirubin NEGATIVE NEGATIVE 05/08/2017 3:40am 05/08/2017 3: 58am Urine Blood TRACE H NEGATIVE 05/08/2017 3:40am 05/08/2017 3:58am Urine WBC 21-50 /HPF H 0-5 05/08/2017 3:40am 05/08/2017 4:11am Urine RBC 0-5 /HPF 0-5 05/08/2017 3:40am 05/08/2017 4:11am Urine Bacteria FEW /HPF NONE 05/08/2017 3:40am 05/08/2017 4:11am Urine Epithelial Cells RARE /LPF NONE 05/08/2017 3:40am 05/08/2017 4: 11am Sodium Level 135 mmol/L L 136-145 05/11/2017 6:2505/11/2017 7:31am Potassium Level 3.5 mmol/L 3.5-5.1 05/11/2017 6:2505/11/2017 7:31am Chloride Level 102 mmol/L 98-107 05/11/2017 6:2505/11/2017 7:31am Carbon Dioxide Level 24 mmol/L 22-29 05/11/2017 6:2505/11/2017 7: 31am Anion Gap 12.5 mmol/L 8-16 05/11/2017 6:2505/11/2017 7:31am Blood Urea Nitrogen < 5 mg/dL L 7-05/11/2017 6:2505/11/2017 7: 31am Creatinine 0.68 mg/dL L 0.72-1.25 05/11/2017 6:2505/11/2017 7:31am BUN/Creatinine Ratio 7 6-05/11/2017 6:05/11/2017 7:31am Estimat Glomerular Filtration Rate > 60 ML/MIN 60- 05/11/2017 6: 7:31am Ranges were taken from the National Kidney Disease Education Program and the National Kidney Foundation literature. Reference ranges: 60 or greater: Normal 16-59 (for 3 consecutive months): Chronic kidney disease 15 or less: Kidney failure Glucose Level 101 mg/dL 74-118 05/11/2017 6:2505/11/2017 7:31am Calcium Level 7.9 mg/dL L 8.4-10.2 05/11/2017 6:2505/11/2017 7:31am Hemoglobin A1c Percent 5.4 % 4.0-7.0 05/08/2017 7:4005/08/2017 7: 56am Phosphorus Level 2.7 MG/DL 2.3-4.7 05/08/2017 4:10pm 05/08/2017 4:54pm Magnesium Level 1.4 MG/DL 1.3-2.1 05/08/2017 4:10pm 05/08/2017 4:54pm Total Bilirubin 2.9 mg/dL H 0.2-1.2 05/11/2017 6:2505/11/2017 7:31am Aspartate Amino Transf (AST/SGOT) 341 IU/L H 5-34 05/11/2017 6: 7:31am Alanine Aminotransferase (ALT/SGPT) 137 IU/L H 0-55 05/11/2017 6: 7:31am Total Protein 6.5 g/dL 6.5-8.1 05/11/2017 6:2505/11/2017 7:31am Albumin 2.5 g/dL L 3.5-5.0 05/11/2017 6:05/11/2017 7:31am Globulin 4.0 g/dL H 2.3-3.5 05/11/2017 6:2505/11/2017 7:31am Albumin/Globulin Ratio 0.6 L 0.8-2.0 05/11/2017 6:05/11/2017 7: 31am Alkaline Phosphatase 120 IU/L 40-150 05/11/2017 6:2505/11/2017 7: 31am Triglycerides Level 196 MG/DL H 0-149 05/08/2017 7:40am 05/08/2017 8: 41am Cholesterol Level 183 MD/DL 0-199 05/08/2017 7:4005/08/2017 8:41am Less than 200 mg/dL Low Risk 201 - 239 mg/dL Borderline Risk 240 mg/dl and greater High Risk LDL Cholesterol 128 MG/DL 60-130 05/08/2017 7:40am 05/08/2017 8:41am HDL Cholesterol 16 MG/DL L 40-60 05/08/2017 7:40am 05/08/2017 8:41am Cholesterol/HDL Ratio 11.4 H 3.9-4.7 05/08/2017 7:40am 05/08/2017 8: 41am Creatine Kinase 147 IU/L # 30-200 05/08/2017 4:10pm 05/08/2017 4:55pm Creatine Kinase MB 1.50 ng/mL 0.00-5.00 05/08/2017 4:10pm 05/08/2017 5: 04pm Troponin I 0.002 ng/mL 0-0.300 05/08/2017 4:10pm 05/08/2017 5:04pm Amylase Level 27 U/L 25-125 05/08/2017 12:20am 05/08/2017 1:21am Lipase 17 U/L 8-78 05/09/2017 6:20am 05/09/2017 7:35am Ethyl Alcohol Level < 10.0 mg/dL 0.0-10.0 05/08/2017 12:20am 2017 1:29am Procedures Procedure Status Date Provider(s) X-ray of chest, single view Active 04/15/17 JEANIE DRAKE NP Computed tomography of abdomen and pelvis with contrast Active 05/08/17 KARMA ZENG MD Computed tomography of abdomen and pelvis with contrast Active 05/10/17 MARTINA MUNSON MD Testicular ultrasound Active 05/11/17 PROSPER LIN MD Dup-scan artl юлия abdl/pel/scrot&/RPR orgn lmt Active 05/11/17 PROSPER LIN MD Encounters Encounter Location Arrival/Admit Date Discharge/Depart Date Attending Provider Discharged Inpatient [facility] 05/08/17 4:27am 05/12/17 1:00pm MARTINA MUNSON MD Departed Emergency Room [facility] 04/15/17 5:17pm 6:16am KARMA ZENG MD
[2017-07-21] MEDS ORDERED: SODIUM CHLORIDE 0.9% 1000ML 1,000 ML IV ONE (19:00)
[2017-07-21 19:21] LABS: BASOPHILS % 0.1 % (0.0-1.0); EOSINOPHILS % 0.1 % (0.0-6.0); LYMPHOCYTES # (AUTO) 0.7 (1.0-3.2); LYMPHOCYTES % 5.5 % (18.0-39.1); MEAN CORPUSCULAR HEMOGLOBIN 31.7 pg (28-32); MEAN CORPUSCULAR VOLUME 96.2 fL (81-99); MONOCYTES # (AUTO) 0.6 (0.2-0.8); MONOCYTES % 5.1 % (4.4-11.3); NEUTROPHILS # (AUTO) 10.6 (2.1-6.9); NEUTROPHILS % 88.8 % (38.7-80.0); PLATELET COUNT 139 x10e3/uL (140-360); RED BLOOD COUNT 1.83 x10e6/uL (4.3-5.7); RED CELL DISTRIBUTION WIDTH 16.8 % (11.7-14.4)
[2017-07-21 19:22] LABS: HEMOGLOBIN 5.8 g/dL (14.0-18.0)
[2017-07-21 19:23] LABS: HEMATOCRIT 17.6 % (38.2-49.6)
[2017-07-21 19:26] LABS: INR 1.49; PROTHROMBIN TIME 16.9 seconds (11.9-14.5)
[2017-07-21 19:27] LABS: PARTIAL THROMBOPLASTIN TIME 38.2 seconds (23.8-35.5)
[2017-07-21] MEDS ORDERED: SODIUM CHLORIDE 0.9% 250ML 250 ML IV ONE (19:30)
[2017-07-21 19:36] LABS: ALANINE AMINOTRANSFERASE 8 IU/L (0-55); ALBUMIN 2.5 g/dL (3.5-5.0); ALBUMIN/GLOBULIN RATIO 0.8 (0.8-2.0); ALKALINE PHOSPHATASE 73 IU/L (40-150); AMYLASE 19 U/L (25-125); ANION GAP 17.1 mmol/L (8-16); BLOOD UREA NITROGEN 33 mg/dL (7-26); BUN/CREATININE RATIO 38 (6-25); CALCIUM 8.4 mg/dL (8.4-10.2); CARBON DIOXIDE 15 mmol/L (22-29); CHLORIDE 109 mmol/L (98-107); CREATININE, SERUM 0.88 mg/dL (0.72-1.25); EST GLOMERULAR FILTRATION RATE > 60 ML/MIN (60-); GLUCOSE 179 mg/dL (74-118); LIPASE 11 U/L (8-78); POTASSIUM 4.1 mmol/L (3.5-5.1); SODIUM 137 mmol/L (136-145)
--- NOTE | 2017-07-21 20:42 | Diagnostic Imaging Report ---
A single frontal view of the chest. HISTORY: Shortness of breath, PICC line placement COMPARISON: Chest radiograph May 08, 2017 DISCUSSION: Portable technique, limits sensitivity of the exam. Marked right anterior oblique rotation. Tubes/Lines: Status post placement of a right upper extremity PICC line, the tip projects in the region of the superior vena cava. Lungs and pleura: Low lung volumes result in bibasilar vascular crowding, accentuation of the pulmonary interstitial markings, central pulmonary vasculature, and the cardiac silhouette. Allowing for these limitations, the findings are as follows: Mild right infrahilar patchy opacity and vascular crowding. No definite pleural effusion or pneumothorax is identified. Heart and mediastinum: The cardiomediastinal silhouette appears unremarkable. Bones: No acute osseous lesion is identified, given this limited exam. IMPRESSION: 1. Status post right upper extremity PICC line placement. 2. Right infrahilar opacity may consider atelectasis versus aspiration or pneumonia in the appropriate setting. Discussed with the PICC line nurse Stanislav via phone on July 21, 2017 at 2037. Signed by: Dr. Yonny Jiménez D.O., M.M.M. on 07/21/2017 8:39 PM
[2017-07-21] MEDS ORDERED: PIPER-TAZ 3.375 GM 50 ML IV STA (20:45)
[2017-07-21] MEDS ORDERED: ONDANSETRON HCL 4 MG ORAL DISINTEGRATING TAB PO ONE (21:30)
[2017-07-21 23:14] VITALS: BP 115/66
== END 2017-07-22 00:06 | disposition short-term general hospital (02) ==
LOC: ER 18:35
DX: K92.1 Melena (principal); D62 Acute posthemorrhagic anemia; J69.0 Pneumonitis due to inhalation of food and vomit; R42 Dizziness and giddiness; Z98.0 Intestinal bypass and anastomosis status; Z87.19 Personal history of other diseases of the digestive system
CPT/HCPCS: 36415; 36569; 71045; 80053; 82150; 82948; 83605; 83690; 85025; 85610; 85730; 86850; 86900; 86920; 93005; 99285; J2543; J7050; P9016

== ENCOUNTER 2017-08-06 15:49 | Emergency (ER) | payer SELFPAY ==
[~2017-08-06] VITALS: Ht 167.6 cm; Wt 102.1 kg
--- OUTSIDE RECORDS SUMMARY | 2017-08-06 15:52 | XMS REPORT | Continuity of Care Document ---
Author Author [facility] Organization [facility] Address [address] [place] [address] Phone Unavailable Care Team Providers Care Design Cell Engineer Name Role Phone NO, PCP PCP Unavailable Advance Directives Directive Response Recorded Date/Time Does the patient have an advance directive? No 05/08/17 4:45am If yes, is advance directive on file with [facility]? No 05/08/17 4:45am If not on file with [facility] will patient provide a copy? No 07/21/17 7:12pm Do you have a Directive to Physician? No 07/21/17 7:12pm Do you have a Medical Power of [place] Folder? No 07/21/17 7:12pm Do you have an out of hospital Do Not Resuscitate Order? No 07/21/17 7:12pm Do you have any special needs we should be aware of? No 07/21/17 7:12pm Do you have a support person here with you today? No 07/21/17 7:12pm Did patient receive Notice of Privacy Practices? Yes 07/21/17 7:12pm Did patient receive patient rights and responsibilities? Yes 07/21/17 7:12pm Problems Medical Problem Onset Date Status Alcoholic [...] information available. Plan of Care Discharge Date 07/22/17 12:06am Disposition DIS/BOWDEN T0 ACUTE CARE HOSP Condition at Discharge Stable Forms Provided Work/School Excuse Prescriptions See Medication Section Functional Status No functional status information available. Allergies, Adverse Reactions, Alerts Allergen Type Severity Reaction Status Last Updated No Known Drug Allergies Allergy Unknown Active 05/08/17 chicken derived Allergy Severe THROAT CLOSES Active 07/21/17 CHICKEN Adverse Reaction Severe THROAT CLOSES Active 04/15/17 Immunizations No immunization information available. Vital Signs Acute Vital Signs Vital Response Date/Time Temperature (Fahrenheit) 99.0 degrees F (97.6 - 99.5) 07/21/2017 11:14pm Pulse Pulse Rate (adult) 101 bpm (60 - 90) 07/21/2017 11:14pm Respiratory Rate 20 bpm (12 - 24) 07/21/2017 11:14pm Blood Pressure 115/66 mm Hg 07/21/2017 11:14pm Height 5 ft 6 in 07/21/2017 7:10pm Weight 225 lb 07/21/2017 7:10pm Body Mass Index 36.3 kg/m^2 07/21/2017 7:10pm Results Laboratory Results Test Name Result Units Flags Reference Collection Date/Time Result Date/ Time Comments Acetaminophen Level < 3 ug/mL L 10-30 04/15/2017 6:25pm 04/15/2017 7: 41pm Salicylates Level < 5.0 mg/dL 0-30 04/15/2017 6:25pm 04/15/2017 7:41pm Urine Color YELLOW YELLOW 05/08/2017 3:40am 05/08/2017 3:58am Urine Clarity CLEAR CLEAR 05/08/2017 3:40am 05/08/2017 3:58am Urine Specific [place] 1.010 1.010-1.025 05/08/2017 3:40am 2017 3:58am Urine [...] /LPF NONE 05/08/2017 3:40am 05/08/2017 4: 11am Hemoglobin A1c Percent 5.4 % 4.0-7.0 05/08/2017 7:40am 05/08/2017 7: 56am Phosphorus Level 2.7 MG/DL 2.3-4.7 05/08/2017 4:10pm 05/08/2017 4:54pm Magnesium Level 1.4 MG/DL 1.3-2.1 05/08/2017 4:10pm 05/08/2017 4:54pm Triglycerides Level 196 MG/DL H 0-149 05/08/2017 7:40am 05/08/2017 8: 41am Cholesterol Level 183 MD/DL 0-199 05/08/2017 7:40am 05/08/2017 8:41am Less than 200 mg/dL Low Risk [...] 0.002 ng/mL 0-0.300 05/08/2017 4:10pm 05/08/2017 5:04pm Ethyl Alcohol Level < 10.0 mg/dL 0.0-10.0 05/08/2017 12:20am 2017 1:29am White Blood Count 11.90 x10e3/uL H 4.8-10.8 07/21/2017 7:01pm 2017 7:23pm Red Blood Count 1.83 x10e6/uL L 4.3-5.7 07/21/2017 7:01pm 07/21/2017 7: 23pm Hemoglobin 5.8 g/dL *L 14.0-18.0 07/21/2017 7:01pm 07/21/2017 7:23pm Results called to KERMIT PATEL RN at 1921 on 07/21/17 by Gregg Funes. RB OK. This test has been rerun and double checked for accuracy. Hematocrit 17.6 % *L 38.2-49.6 07/21/2017 7:01pm 07/21/2017 7:23pm Results called to KERMIT PATEL RN at 1922 on 07/21/17 by Gregg Funes. RB OK. This test has been rerun and double checked for accuracy. Mean Corpuscular Volume 96.2 fL 81-99 07/21/2017 7:01pm 07/21/2017 7: 23pm Mean Corpuscular Hemoglobin 31.7 pg 28-32 07/21/2017 7:01pm 07/21/2017 7:23pm Mean Corpuscular Hemoglobin Concent 33.0 g/dL 31-35 07/21/2017 7:01pm 07/21/2017 7:23pm Red Cell Distribution Width 16.8 % H 11.7-14.4 07/21/2017 7:01pm 2017 7:23pm Platelet Count 139 x10e3/uL L 140-360 07/21/2017 7:01pm 07/21/2017 7: 23pm Neutrophils (%) (Auto) 88.8 % H 38.7-80.0 07/21/2017 7:01pm 07/21/2017 7 :23pm Lymphocytes (%) (Auto) 5.5 % L 18.0-39.1 07/21/2017 7:01pm 07/21/2017 7: 23pm Monocytes (%) (Auto) 5.1 % 4.4-11.3 07/21/2017 7:01pm 07/21/2017 7: 23pm Eosinophils (%) (Auto) 0.1 % 0.0-6.0 07/21/2017 7:01pm 07/21/2017 7: 23pm Basophils (%) (Auto) 0.1 % 0.0-1.0 07/21/2017 7:01pm 07/21/2017 7:23pm IM GRANULOCYTES % 0.4 % 0.0-1.0 07/21/2017 7:01pm 07/21/2017 7:23pm Neutrophils # (Auto) 10.6 H 2.1-6.9 07/21/2017 7:01pm 07/21/2017 7: 23pm Lymphocytes # (Auto) 0.7 L 1.0-3.2 07/21/2017 7:01pm 07/21/2017 7: 23pm Monocytes # (Auto) 0.6 0.2-0.8 07/21/2017 7:01pm 07/21/2017 7:23pm Eosinophils # (Auto) 0.0 0.0-0.4 07/21/2017 7:01pm 07/21/2017 7:23pm Basophils # (Auto) 0.0 0.0-0.1 07/21/2017 7:01pm 07/21/2017 7:23pm Absolute Immature Granulocyte (auto 0.05 x10e3/uL 0-0.1 07/21/2017 7: 01pm 07/21/2017 7:23pm Prothrombin Time 16.9 seconds H 11.9-14.5 07/21/2017 7:01pm 07/21/2017 7 :27pm Prothromb Time International Ratio 1.49 07/21/2017 7:01pm 2017 7:27pm Oral Anticoagulant Therapy INR Values: 1. Low Intensity Therapy 1.5 - 2.0 2. Moderate Intensity Therapy 2.0 - 3.0 3. High Intensity Therapy(1) 2.5 - 3.5 4. High Intensity Therapy(2) 3.0 - 4.0 5. Panic Value INR > 5.0 Activated Partial Thromboplast Time 38.2 seconds H 23.8-35.5 07/21/2017 7 :01pm 07/21/2017 7:27pm Sodium Level 137 mmol/L 136-145 07/21/2017 7:01pm 07/21/2017 7:39pm Potassium Level 4.1 mmol/L 3.5-5.1 07/21/2017 7:01pm 07/21/2017 7:39pm Chloride Level 109 mmol/L H 98-107 07/21/2017 7:01pm 07/21/2017 7:39pm Carbon Dioxide Level 15 mmol/L L -07/21/2017 7:01pm 07/21/2017 7: 39pm Anion Gap 17.1 mmol/L H 8-16 07/21/2017 7:01pm 07/21/2017 7:39pm Blood Urea Nitrogen 33 mg/dL H 7-07/21/2017 7:01pm 07/21/2017 7:39pm Creatinine 0.88 mg/dL 0.72-1.25 07/21/2017 7:01pm 07/21/2017 7:39pm BUN/Creatinine Ratio 38 H 6-25 07/21/2017 7:01pm 07/21/2017 7:39pm Estimat Glomerular Filtration Rate > 60 ML/MIN 60- 07/21/2017 7:01pm 7:39pm Ranges were taken from the National Kidney Disease Education Program and the National Kidney Foundation literature. Reference ranges: 60 or greater: Normal 16-59 (for 3 consecutive months): Chronic kidney disease 15 or less: Kidney failure Glucose Level 179 mg/dL H 74-118 07/21/2017 7:01pm 07/21/2017 7:39pm Calcium Level 8.4 mg/dL 8.4-10.2 07/21/2017 7:01pm 07/21/2017 7:39pm Lactic Acid Level 42.7 MG/DL H 4.5-19.8 07/21/2017 7:0107/21/2017 7: 33pm Total Bilirubin 0.8 mg/dL 0.2-1.2 07/21/2017 7:0107/21/2017 7:39pm Aspartate Amino Transf (AST/SGOT) 21 IU/L 5-34 07/21/2017 7:01pm 2017 7:39pm Alanine Aminotransferase (ALT/SGPT) 8 IU/L 0-55 07/21/2017 7:01pm 07/21 7:39pm Total Protein 5.5 g/dL L 6.5-8.1 07/21/2017 7:0107/21/2017 7:39pm Albumin 2.5 g/dL L 3.5-5.0 07/21/2017 7:0107/21/2017 7:39pm Globulin 3.0 g/dL 2.3-3.5 07/21/2017 7:01pm 07/21/2017 7:39pm Albumin/Globulin Ratio 0.8 0.8-2.0 07/21/2017 7:01pm 07/21/2017 7: 39pm Alkaline Phosphatase 73 IU/L 40-150 07/21/2017 7:01pm 07/21/2017 7: 39pm Amylase Level 19 U/L L 25-125 07/21/2017 7:01pm 07/21/2017 7:39pm Lipase 11 U/L 8-78 07/21/2017 7:01pm 07/21/2017 7:39pm Procedures Procedure Status Date Provider(s) X-ray of [...] Location Arrival/Admit Date Discharge/Depart Date Attending Provider Departed Emergency Room [facility] 07/21/17 6:35pm 12:06am KARMA ZENG MD Discharged Inpatient [facility] 05/08/17 4:27am 05/12/17 1:00pm MARTINA MUNSON MD Departed Emergency [facility] 04/15/17 5:17pm 6:16am KARMA ZENG MD
[2017-08-06] MEDS ORDERED: SODIUM CHLORIDE 0.9% 1000ML 1,000 ML IV STA (16:43)
[2017-08-06] MEDS ORDERED: DIATRIZOATE MEGL/DIATRIZOA SOD 30 ML BTL PO ONE (16:59)
[2017-08-06] MEDS ORDERED: LORAZEPAM INJ 2 MG/ML VIAL IV ONE ×2 (17:30→19:30)
[2017-08-06 18:51] LABS: BASOPHILS # (AUTO) 0.1 (0.0-0.1); BASOPHILS % 0.9 % (0.0-1.0); EOSINOPHILS # (AUTO) 0.1 (0.0-0.4); HEMATOCRIT 28.4 % (38.2-49.6); HEMOGLOBIN 9.6 g/dL (14.0-18.0); LYMPHOCYTES # (AUTO) 1.9 (1.0-3.2); LYMPHOCYTES % 32.3 % (18.0-39.1); MEAN CORPUSCULAR HEMOGLOBIN 31.1 pg (28-32); MEAN CORPUSCULAR HGB CONC 33.8 g/dL (31-35); MEAN CORPUSCULAR VOLUME 91.9 fL (81-99); MONOCYTES # (AUTO) 0.4 (0.2-0.8); NEUTROPHILS # (AUTO) 3.3 (2.1-6.9); NEUTROPHILS % 58.5 % (38.7-80.0); PLATELET COUNT 160 x10e3/uL (140-360); RED BLOOD COUNT 3.09 x10e6/uL (4.3-5.7); RED CELL DISTRIBUTION WIDTH 16.9 % (11.7-14.4)
[2017-08-06 19:12] LABS: AMYLASE 54 U/L (25-125); ANION GAP 17.3 mmol/L (8-16); BLOOD UREA NITROGEN 12 mg/dL (7-26); BUN/CREATININE RATIO 16 (6-25); CALCIUM 8.7 mg/dL (8.4-10.2); CARBON DIOXIDE 16 mmol/L (22-29); CHLORIDE 108 mmol/L (98-107); CREATININE, SERUM 0.77 mg/dL (0.72-1.25); EST GLOMERULAR FILTRATION RATE > 60 ML/MIN (60-); GLUCOSE 95 mg/dL (74-118); LIPASE 61 U/L (8-78); POTASSIUM 3.3 mmol/L (3.5-5.1); SODIUM 138 mmol/L (136-145)
[2017-08-06] MEDS ORDERED: SODIUM CHLORIDE 0.9% 50ML 50 ML ONE (19:23)
[2017-08-06] MEDS ORDERED: IOPAMIDOL 370 MG/ML 200 ML INFUS..BTL INJ ONE (19:23)
[2017-08-06] MEDS ORDERED: LORAZEPAM INJ 2 MG/ML VIAL ONE (19:25)
--- NOTE | 2017-08-06 20:29 | Diagnostic Imaging Report ---
EXAM: CT ABDOMEN/PELVIS W DATE: 08/06/2017 4:43 PM INDICATION: Recurrent diverticulitis COMPARISON: 05/10/2017 TECHNIQUE: The abdomen and pelvis were scanned using a multidetector helical scanner. Coronal and sagittal reformations were obtained. Routine protocol performed. IV Contrast: 100 ml Isovue 300/370 FINDINGS: LOWER THORAX: No consolidations LIVER/BILIARY: Hepatic steatosis. No masses or ductal dilatation. GALLBLADDER: Unremarkable SPLEEN: Unremarkable PANCREAS: Unremarkable ADRENALS: No nodules KIDNEYS: Symmetric perfusion. Several too small to characterize renal hypodensities. No hydronephrosis. GI TRACT: Postsurgical changes status post interval sigmoidectomy with mild infiltration of the fat. Diverting right lower quadrant ileostomy. No evidence of bowel obstruction.: The decompressed. VESSELS: Unremarkable PERITONEUM/RETROPERITONEUM: No free air or fluid collection. Mild mesenteric stranding. LYMPH NODES: No lymphadenopathy REPRODUCTIVE ORGANS/BLADDER: Mild bladder wall thickening, either reactive and/or related to underdistention. SOFT TISSUES: Midline laparotomy changes with mild fluid along the incision (11 x 16 x 68 mm). No drainable collection. BONES: No suspicious bone lesions. IMPRESSION: 1. Expected postsurgical changes status post interval sigmoidectomy with diverting ileostomy. 2. Midline laparotomy collection which is likely postsurgical seroma in the absence of clinical signs/symptoms of infection. Signed by: Dr Andressa Schuler MD on 08/06/2017 8:25 PM
[2017-08-06 21:07] VITALS: BP 154/84
== END 2017-08-06 21:50 | disposition home or self-care (01) ==
LOC: ER 15:49
DX: R10.32 Left lower quadrant pain (principal); R11.0 Nausea; Z87.19 Personal history of other diseases of the digestive system; Z93.3 Colostomy status
CPT/HCPCS: 36415; 74177; 80048; 82150; 83690; 85025; 99284; J2060; J7030; Q9967